=== PATIENT | male | born 1955 | race Caucasian/White ===

== ENCOUNTER 2025-04-20 16:41 | Inpatient (IN) | payer MEDICARE, OTHER, SELFPAY ==
[2025-04-20] VITALS (10 sets, daily range): BP systolic 100–165; BP diastolic 62–102; PULSE 2–121; BMI 19.9
[2025-04-20 13:12] LABS: % Basophils 0.4 % (0-2); % Eosinophils 0.1 % (0-6); % Immature Granulocytes 0.3 % (0-0.5); % Lymphocytes 6.9 % (20.5-51.1); % Monocytes 10.3 % (1.7-9.3); Absolute Basophils 0.1 10^3/uL (0-0.2); Absolute Lymphocytes 0.9 10^3/uL (1.2-3.4); Absolute Monocytes 1.4 10^3/uL (0.1-0.6); Hematocrit 37.8 % (39.0-52.0); Hemoglobin 13.1 g/dL (13.0-18.0); Mean Corp Hgb Conc. 34.7 g/dL (33.0-37.0); Mean Corpuscular Hgb 31.2 pg (27.0-31.0); Mean Platelet Volume 9.1 fL (7.4-10.4); Nucleated Red Blood Cells % 0 % (-); Platelet Count 185 10^3/uL (130-400); Red Cell Dist. Width 12.1 % (11.5-14.5); White Blood Cell Count 13.4 10^3/uL (4.8-10.8)
--- NOTE | 2025-04-20 13:15 | ED.GENMED ---
History of Present Illness
<Nena Barone DO - Last Filed: 04/20/25 15:49>
General
Chief Complaint: Breathing Problem
Time Seen by Provider: 04/20/25 12:57
<TORRES Moffett - Last Filed: 04/20/25 15:59>
General
Source: patient and spouse
Exam Limitations: none
Nursing documentation reviewed up to this point in time: agreed with
History of Present Illness
History of Present Illness:
Patient is a 69-year-old male with history of lung cancer/chemoradiation. He received first dose of immunotherapy March 30. He is followed by [facility] Dr. [place]. PT Presents to the ER for evaluation of shortness of breath. He has
had intermittent chills and shortness of breath since Thursday for the past 4 days. He was guided by oncology several years ago and negative chest x-ray.
Patient presents for shortness of breath. He is normally on O2 2 L. He has had recent cough.
Patient was placed on BiPAP prior to my exam and does report he is feeling improved.
Past History
<TORRES Moffett - Last Filed: 04/20/25 15:59>
Past History
ED Past Medical History: Other (pt states they are watching his blood pressure)
ED Past Surgical History: None
Social History
Tobacco: Smoker
Alcohol: Occasional
Drug: None
Personal:
Living: with family
Employment: Employed
Review of Systems
<TORRES Moffett - Last Filed: 04/20/25 15:59>
Review of Systems
Allergies reviewed?: Yes
Other source history: family
All Other Systems: ROS reviewed and negative except as documented in HPI and ROS
Constitutional: Reports chills
EENT: Reports no symptoms
Respiratory: Reports cough and trouble breathing
Cardiac: Reports no symptoms
ABD/GI: Reports no symptoms
: Reports no symptoms
Musculoskeletal: Reports no symptoms
Skin: Reports no symptoms
Psychiatric: Reports no symptoms
Phy Exam
<TORRES Moffett - Last Filed: 04/20/25 15:59>
General Physical Exam
General Presentation: no apparent distress
General age: appears stated age
General Skin: warm and dry
General Habitus: normal
General Mental: alert
General Hydration: appears well hydrated
Cardiovascular Exam
Cardiovascular Exam: tachycardia
Pulmonary Exam
Pulmonary Exam: other (Patient on BiPAP during my exam increased respiratory rate; rhonchi )
Neurological Exam
Neurological Exam: alert and oriented x3
Musculoskeletal Exam
Musculoskeletal Exam: full ROM
Skin Exam
Skin Exam: normal color
Psychiatric Exam
Psychiatric Exam: normal mood/affect
Scores
<TORRES Mofeftt - Last Filed: 04/20/25 15:59>
Heart Failure Risk
Heart Failure Risk Score: Not Applicable
Sepsis
<Nena Barone DO - Last Filed: 04/20/25 15:49>
Sepsis Screening
Sepsis Assessment: Sepsis
Sepsis Screening: Need for mechanical ventilation or BiPAP
Sepsis Screen
Sepsis Screen: Sepsis
Date: 04/20/25
Time: 15:49
<TORRES Moffett - Last Filed: 04/20/25 15:59>
Sepsis Screen
Sepsis Screen: Sepsis
Date: 04/20/25
Time: 15:50
Course
<Nena Barone DO - Last Filed: 04/20/25 15:49>
Orders/Labs/Results
Orders:
Orders
04/20/25 12:56
Electrocardiogram (*1) Urgent
Reason for Study: Shortness of Breath
EKG- Treatment ONCE
04/20/25 12:58
Complete Blood Count/With Diff Urgent
Comprehensive Metabolic Panel Urgent
Pro-BNP [NT-proBNP] Urgent
04/20/25 13:25
Portable Chest Xray [CR Chest Portable - 1 View] Urgent
Comment:
Reason For Exam: sob
Reason Study Needs to be Portable: Unable to Transport
04/20/25 13:26
CT Chest PE Study Urgent
Comment:
Reason For Exam: SOB
04/20/25 13:28
Acetaminophen [Tylenol] 650 mg PO NOW STA
04/20/25 13:29
0.9% Sodium Chloride 1000 ml [Nss] 1,000 ml IV BOLUS
04/20/25 13:46
COVID-19 Antigen Urgent
Source: Nasal Swab
Lactic Acid Q4H
Comment: CANCEL 2nd LACTIC ACID IF 1st LACTIC ACID IS LESS THAN 2
Venous Blood Gas Urgent
%Oxygen/Room Air: 100
Blood Culture Q30M
RAJ Source: Blood/Venous
Specimen Description:
Blood Culture Q30M
RAJ Source: Blood/Venous
Specimen Description:
Influenza A+B Rapid Molecular Urgent
RAJ Source: Nasal Swab
Specimen Description:
04/20/25 15:49
*Vancomycin 1,500 mg Loading Dose(consider for 50-69 kg; MAX HD load) Vancomycin [Vancocin] 1,500 mg 0.9% Sodium Chloride 500 ml [Nss] 500 ml IV NOW
Cefepime HCl [Maxipime] 1,000 mg IV NOW STA
Abnormal Lab Results
04/20/25 04/20/25
12:58 13:46
WBC 13.4 H 10^3/uL
(4.8-10.8)
RBC 4.20 L 10^6/uL
(4.70-6.10)
Hct 37.8 L %
(39.0-52.0)
MCH 31.2 H pg
(27.0-31.0)
Absolute Neuts (auto) 11.0 H 10^3/uL
(1.4-6.5)
Absolute Lymphs (auto) 0.9 L 10^3/uL
(1.2-3.4)
Absolute Monos (auto) 1.4 H 10^3/uL
(0.1-0.6)
Neutrophils % 82.0 H %
(42.2-75.2)
Lymphocytes % 6.9 L %
(20.5-51.1)
Monocytes % 10.3 H %
(1.7-9.3)
VBG HCO3 28.5 H mmol/L
(22-27)
Creatinine 0.6 L mg/dL
(0.7-1.3)
Glucose 140 H mg/dl
(70-99)
04/20/25 12:58
04/20/25 12:58
Vital Signs
Initial and Last Documented VS:
Initial Vital Signs
Pulse Resp BP
129 30 144/79
04/20/25 12:58 04/20/25 12:58 04/20/25 12:58
Last Documented Vital Signs
Temp Pulse Resp BP Pulse Ox
98.7 F 108 31 100/80 97
04/20/25 15:00 04/20/25 15:00 04/20/25 15:00 04/20/25 14:00 04/20/25 15:00
Tiffanilt;TORRES Moffett - Last Filed: 04/20/25 15:59>
Orders/Labs/Results
Orders:
Orders
04/20/25 12:56
Electrocardiogram (*1) Urgent
Reason for Study: Shortness of Breath
EKG- Treatment ONCE
04/20/25 12:58
Complete Blood Count/With Diff Urgent
Comprehensive Metabolic Panel Urgent
Pro-BNP [NT-proBNP] Urgent
04/20/25 13:25
Portable Chest Xray [CR Chest Portable - 1 View] Urgent
Comment:
Reason For Exam: sob
Reason Study Needs to be Portable: Unable to Transport
04/20/25 13:26
CT Chest PE Study Urgent
Comment:
Reason For Exam: SOB
04/20/25 13:28
Acetaminophen [Tylenol] 650 mg PO NOW STA
04/20/25 13:29
0.9% Sodium Chloride 1000 ml [Nss] 1,000 ml IV BOLUS
04/20/25 13:46
COVID-19 Antigen Urgent
Source: Nasal Swab
Lactic Acid Q4H
Comment: CANCEL 2nd LACTIC ACID IF 1st LACTIC ACID IS LESS THAN 2
Venous Blood Gas Urgent
%Oxygen/Room Air: 100
Blood Culture Q30M
RAJ Source: Blood/Venous
Specimen Description:
Blood Culture Q30M
RAJ Source: Blood/Venous
Specimen Description:
Influenza A+B Rapid Molecular Urgent
RAJ Source: Nasal Swab
Specimen Description:
04/20/25 15:49
*Vancomycin 1,500 mg Loading Dose(consider for 50-69 kg; MAX HD load) Vancomycin [Vancocin] 1,500 mg 0.9% Sodium Chloride 500 ml [Nss] 500 ml IV NOW
Cefepime HCl [Maxipime] 1,000 mg IV NOW STA
Abnormal Lab Results
04/20/25 04/20/25
12:58 13:46
WBC 13.4 H 10^3/uL
(4.8-10.8)
RBC 4.20 L 10^6/uL
(4.70-6.10)
Hct 37.8 L %
(39.0-52.0)
MCH 31.2 H pg
(27.0-31.0)
Absolute Neuts (auto) 11.0 H 10^3/uL
(1.4-6.5)
Absolute Lymphs (auto) 0.9 L 10^3/uL
(1.2-3.4)
Absolute Monos (auto) 1.4 H 10^3/uL
(0.1-0.6)
Neutrophils % 82.0 H %
(42.2-75.2)
Lymphocytes % 6.9 L %
(20.5-51.1)
Monocytes % 10.3 H %
(1.7-9.3)
VBG HCO3 28.5 H mmol/L
(22-27)
Creatinine 0.6 L mg/dL
(0.7-1.3)
Glucose 140 H mg/dl
(70-99)
04/20/25 12:58
04/20/25 12:58
Vital Signs
Initial and Last Documented VS:
Initial Vital Signs
Pulse Resp BP
129 30 144/79
04/20/25 12:58 04/20/25 12:58 04/20/25 12:58
Last Documented Vital Signs
Temp Pulse Resp BP Pulse Ox
98.7 F 108 31 100/80 97
04/20/25 15:00 04/20/25 15:00 04/20/25 15:00 04/20/25 14:00 04/20/25 15:00
Powderman consulted with Physician
Powderman consulted with physician?: Yes
Name of Physician Consulted: petty
<TORRES Moffett - Last Filed: 04/20/25 15:59>
MDM/Problems Addressed
Differential Diagnosis Includes:
not limited to: Pneumonia, PE
MDM/Problems Addressed:
Patient is a 69-year-old male with history of lung cancer status post chemoradiation had 1 dose of immunotherapy presents for shortness of breath chills for the past several days. Patient presented hypoxic was on BiPAP during my exam. No acute
pneumonia on chest x-ray however CAT scan does show patchy right lower lobe consolidation suspicious for pneumonia negative for PE. Patient presented with a low-grade temp of 100.3 given Tylenol with an elevated white count 13.4, normal lactic,
normal renal function will require admission IV antibiotics.
<TORRES Moffett - Last Filed: 04/20/25 15:59>
*Radiology
Radiology exam reviewed: radiology read reviewed
*Pulse Oximetry
Patient hypoxic: yes
*EKG
Interpreted by ED Provider?: Yes
Heart Rate: 129
Rate: tachycardiac
Rhythm: sinus
*Critical Care Note
Total Time (30-74mins, 75-104mins- exclusive of procedures): Not Applicable
comment:
Critical care statement: A total of 44 minutes of critical care time was provided for this patient. This includes management of unstable vital signs, evaluation of the patient at bedside, reviewing the patient's pertinent medical records, discussion
with consultants, review of old EKGs and review of pertinent medical records. This time with separate from time utilized to perform the aforementioned documented procedures
ED Attending Note
<Nena Barone DO - Last Filed: 04/20/25 15:49>
ED Attending Note
Patient seen and examined by attending physician: Yes
I performed the substantive portion of visit, reviewed & personally made and approve the management plan that is documented in note by myself or ABDI.: Yes
I performed a history and physical exam of patient and discussed management with resident, I reviewed resident's note and agree with documented findings and plan of care.: Yes
ED Attending Note:
69-year-old male with history of lung cancer, currently off of chemotherapy and radiation, on immunotherapy presenting for cough, shortness of breath, low-grade temperature. Patient has been feeling unwell for the past 5 days, had an oncology
appointment on Thursday at [facility]. He notes that he has been having a cough, however was not until today that he started to spike a fever, low-grade at home. noted that he looked increasingly short of breath, prompting him to
come to the hospital. Denies history of blood clots, is not on any blood thinners. No known sick contacts. Vital signs significant for low-grade temperature and tachycardia.
On exam, patient in moderate respiratory distress, respiratory called to bedside and placed on BiPAP. Rhonchorous breath sounds bilaterally. Patient is tachycardic, however sinus rhythm. Patient's vital signs are meeting SIRS criteria with
suspected source of infection being pulmonary. Concern for sepsis. Will send lactic acid, blood cultures, laboratory analysis. Patient started on IV fluids, plan for chest x-ray imaging. In the setting of low-grade fever and cough, lower
suspicion for PE. Will continue to monitor from a respiratory standpoint
15:45- Chest x-ray does not show obvious pneumonia, so CT PE obtained, which shows show acute pneumonia. Consistent with symptoms. Plan for broad-spectrum antibiotics and admission in the setting of sepsis from pulmonary source.
<TORRES Moffett - Last Filed: 04/20/25 15:59>
-
Portions of this chart may have been created with voice recognition software.� Occasional wrong word or��sound alike� substitutions may have occurred due to the inherent limitations of voice recognition software.
Discharge Plan
Departure
Patient Disposition: Admit
Date of Disposition: 04/20/25
Time of Disposition: 15:57
Admit to: Telemetry
Admit to doctor: hospitalist
Presentation/result/management discussed w/ accepting MD/DO: Hospitalist
Patient with high blood pressure during this ER visit?: Yes
Condition: Fair
Covid-19: Negative COVID-19
Discharge Problem:
Pneumonia
Prescriptions:
No Action
gabapentin 100 mg Capsule
100 mg PO BID
Referrals:
Naldo Alfonso MD [Family Provider] -
Interventions
Interventions:
*Risk Screen - Suicide Last Done: 04/20/25 12:59
*General Assessment Last Done: 04/20/25 12:59
*Neglect/Abuse Screening Last Done: 04/20/25 12:59
*ED- Fall Risk Assessment Last Done: 04/20/25 12:59
*ED COVID-19 Vaccine History Last Done: 04/20/25 12:59
ED- Cardiac Assessment Last Done: 04/20/25 12:59
ED- Pulmonary Assessment Last Done: 04/20/25 12:59
Discharge Date and Time
Print Language: YAKUT
[2025-04-20 13:30] LABS: ALT (SGPT) 32 U/L (0-50); AST (SGOT) 26 U/L (17-59); Alkaline Phosphatase 74 U/L (38-126); Blood Urea Nitrogen 19 mg/dl (9-20); Calcium 8.6 mg/dl (8.4-10.2); Carbon Dioxide 27 mmol/L (22-30); Chloride 105 mmol/L (98-107); Estimated Creatinine Clearance 108 ml/min; Glucose 140 mg/dl (70-99); Sodium 139 mmol/L (135-145); Total Bilirubin 0.9 mg/dl (0.2-1.3); Total Protein 6.8 g/dl (6.3-8.2); eGFR > 60.00
[2025-04-20] MEDS: NSS 1000 IV (13:35)
[2025-04-20] MEDS: TYLENOL 650 MG PO (13:35)
[2025-04-20 13:39] LABS: NT-proBNP 879 pg/ml
[2025-04-20 14:03] LABS: Venous Blood Gas B.E. 2.8 mmol/L (-4 to +4); Venous Blood Gas HCO3 28.5 mmol/L (22-27); Venous Blood Gas O2 Sat % 71.4 %; Venous Blood Gas pCO2 47 mmHg (35-48); Venous Blood Gas pH 7.39 (7.32-7.43); Venous Blood Gas pO2 41 mmHg (30-50)
[2025-04-20 14:19] LABS: COVID-19 Antigen Negative (Negative)
[2025-04-20 14:22] LABS: Lactic Acid 1.2 mmol/L (0.7-2.0)
[2025-04-20] MEDS: MAXIPIME 1000 MG IV ×2 (15:59→21:03)
--- NOTE | 2025-04-20 16:21 | HPS.HSE ---
Addendum entered and electronically signed by Hai Green MD 04/20/25 17:08:
ADDENDUM:
Septic Fluid ; IV LR @ 100/H
Original Note:
Family Physician
-
Family Physician: Naldo Alfonso
Chief Complaint
-
shortness of breath.
History of Present Illness
HPI
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
- for evaluation of shortness of breath.
- First dose of immunotherapy as of March 30
- he is followed by [facility] Dr. [place].
- aslo has had intermittent chills and shortness of breath since Thursday for the past 4 days.
ER w/u
WBC 13.4
CT neg for PE + right lower lobe consolidation /pneumonia . I
Patient presents for shortness of breath. He is normally on O2 2 L. He has had recent cough.
Patient was placed on BiPAP prior to my exam and does report he is feeling improved.
At ER
NS 1 L wide open
BiPAP
Medical History
Past Medical History
Past Medical History: Reports Cancer (HX home O2 depedent CA lung cancer on chemoradiation) and HTN
Past Surgical History: Reports Other
Social History
Tobacco: Smoker
Alcohol: Occasional
Personal:
Living: With Family
Family History
Family History: Not pertinent
Allergies / Home Medications
Allergies reflects when Allergies were last updated in [employer].
Home Medications with original date entered in [employer]
Allergy/Medication List:
Allergies
Allergy/AdvReac Type Severity Reaction Status Date / Time
clopidogrel [From Plavix] Allergy Rash Verified 04/20/25 12:55
Home Medications
albuterol sulfate 90 mcg/actuation aerosol inhaler 2 puff inhalation R Q6HPRN PRN sob 04/20/25
aspirin 81 mg tablet,delayed release 81 mg PO DAILY 04/20/25
atorvastatin 40 mg tablet (Lipitor) 40 mg PO DAILY 04/20/25
fluticasone fur. 200 mcg-umeclid 62.5 mcg-vilant 25 mcg inhalat.powder (Trelegy Ellipta) 1 inh inhalation R DAILY 04/20/25
gabapentin 100 mg capsule 200 mg PO HS 04/20/25
nifedipine 90 mg tablet,extended release 90 mg PO DAILY 04/20/25
Review of Systems
-
Constitutional: Reports No Symptoms
EENT: Reports No Symptoms
Cardiac: Reports No Symptoms
Abdomen/GI: Reports No Symptoms
: Reports No Symptoms
Musculoskeletal: Reports No Symptoms
Skin: Reports No Symptoms
Neurological: Reports No Symptoms
Endocrine: Reports No Symptoms
Hematologic/Lymphatic: Reports No Symptoms
Psych: Reports No Symptoms
Physical Exam
Vital Signs
Vital Signs
Temp Pulse Resp BP Pulse Ox
98.7 F 108 31 100/80 97
04/20/25 15:00 04/20/25 15:00 04/20/25 15:00 04/20/25 14:00 04/20/25 15:00
Physical Exam
General: Well Developed, Well Nourished, No Apparent Distress and Other (wearing BiPAP and tolerating )
HEENT: NormoCephalic, Moist mucous membranes and Atraumatic
Respiratory: Other (Tachypneic, rhonchi )
Cardiac: S1/S2, Regular Rhythm and Tachycardia; No Murmur or Rub
GI: Soft, Non Tender, Non Distended and Normal Bowel Sounds; No Organomegaly
Rectal: Deferred by Provider
Musculoskeletal: No Clubbing, No Cyanosis and No Edema
Skin: No Rash
Neuro: Nonfocal/grossly intact
Psych: Calm and Intact Judgment/Insight
Laboratory Results
-
04/20/25 12:58
04/20/25 12:58
Labs
Lactic Acid Cancelled 04/20/25 17:45
Total Bilirubin 0.9 mg/dl (0.2-1.3) 04/20/25 12:58
AST 26 U/L (17-59) 04/20/25 12:58
ALT 32 U/L (0-50) 04/20/25 12:58
Alkaline Phosphatase 74 U/L (38-126) 04/20/25 12:58
Data Reviewed
-
CT Scan: Report Reviewed by me
Medical Tests (Nuc Med, Echo, EKG etc): Image Personally Visualized and interpreted
Lab Data: Labs Reviewed by me
Impression/Plan
-
Vital Signs
Temp Pulse Resp BP Pulse Ox
98.7 F 108 31 100/80 97
04/20/25 15:00 04/20/25 15:00 04/20/25 15:00 04/20/25 14:00 04/20/25 15:00
Selected VS
04/20/25
12:59
Temp 100.3 F
Temp route: Oral
Pulse 123
Resp Rate 37
SaO2 100
Oxygen Mode of Delivery BiPAP
Labs
04/20/25 04/20/25
12:58 13:46
WBC 13.4 H
Hgb 13.1
Plt Count 185
Neutrophils % 82.0 H
Lymphocytes % 6.9 L
Monocytes % 10.3 H
VBG pH 7.39
VBG pCO2 47
VBG pO2 41
VBG HCO3 28.5 H
Sodium 139
Potassium 4.0
Carbon Dioxide 27
Creatinine 0.6 L
eGFR > 60.00
Lactic Acid 1.2
AST 26
ALT 32
Alkaline Phosphatase 74
Qiq-Y-Rgnryfgfsmg Pept 879
SARS-CoV-2 Antigen Negative
NEG Flu A and Flu B
BCx sent
EKG
SINUS TACHYCARDIA WITH OCCASIONAL PREMATURE ATRIAL COMPLEXES AND PREMATURE
VENTRICULAR COMPLEXES
NO PREVIOUS ECGS AVAILABLE
Confirmed by QUIN PRYOR MD ([id number]) on 04/20/2025 1:12:12 PM
CXR
Suspect chronic interstitial changes/fibrosis. Superimposed pneumonitis or pulmonary interstitial edema not excluded.
Contrast-enhanced CTA of the chest 04/20/2025
1. No evidence of pulmonary embolism.
2. Patchy right lower lobe subpleural consolidation highly suspicious for pneumonia.
3. Bilateral pulmonary nodules measuring up to 1.1 cm, infectious/inflammatory versus neoplastic. Recommend short-term follow-up CT chest in 6-10 weeks versus further evaluation with PET/CT.
4. Prominent mediastinal and hilar lymphadenopathy, reactive versus metastatic.
NO PRIOR DH visist or hospitalist admission:
ASSESSMENT & PLAN
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
Acute hypoxic RF due to PNA
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
- NEG CTE for PE
- c/w BiPAP support
Sepsis due to PNA
PNA @ [facility]LLL
Associated with acute on chr hypoxic RF
- NEG Covid. TIARA Flu A & B
- BCx sent
- IV CFP and IV Vanco
- Wean BiPAP as able
Two primary Lung CA :Per spouse ( Stage I on Rt , Stgae IIIa on Lt)
Currently on Immunotherapy ) q2weks for 1 yr, first dose on April 04, missed dose on April 18 due to acute illnes)
S/P 6 cycles of chemo as of January , s/p XRT as of February.
Bilateral pulmonary nodules measuring up to 1.1 cm
Prominent mediastinal and hilar lymphadenopathy, reactive versus metastatic.
DDX: infectious/inflammatory versus neoplastic.
- short-term follow-up CT chest in 6-10 weeks versus further evaluation with PET/CT.
- Postponed immuno Tx for now due to PNA
- f/u P Oncologist Dr [place] at [facility] on [facility].
Essential HTN
- c/w SASH MAKER Nifedipine
DVT Px:LMWH
Full code per patient
IMU
[2025-04-20] MEDS: VANCOCIN 530 MG IV (16:22)
[2025-04-20] MEDS: LR 1000 IV (17:42)
[2025-04-20] MEDS: LOVENOX 40 MG SC (17:43)
--- NOTE | 2025-04-20 19:32 | PHA.VAN.IN ---
Assessment
- Assessment
Renal Function: Unknown baseline
Maximum Temperature: 100.5 F oral 04/20 @ 1805
Concomitant Antimicrobials: cefepime
AUC Dosing Plan
- Dosing Variables
Dosing Weight (kg): 66.5
Dosing CrCl (ml/min): 108
Vd coefficient (L/kg): 0.7
- Empiric Dosing
Initial / Loading Dose: vanc 1500mg administered @ 1622
Maintenance Regimen: vanc 1000mg Q12H
Estimated AUC (mcg*h/mL): 478
Estimated Peak (mcg*h/mL): 31.8
Estimated Trough (mcg/ml): 11.3
Estimated Half Life (H): 7.4
- Monitoring
No levels ordered at this time: consider levels in next few days
MRSA Screen: Ordered per protocol
Pharmacokinetics Vancomycin I
- -
Patient Age: 69
Patient Sex: Male
Vancomycin Day #: 1
Indication: Pulmonary/Respiratory
Requesting Provider: Esperanza Eckert
Pertinent Antimicrobial Allergies:
no pertinent antimicrobial allergies
Height / Weight:
Height 6 ft
Actual Weight 66.5 kg
Pertinent Past Medical History: lung cancer receiving chemotherapy/radiation
- Vital Signs / Lab Results
Temp Pulse Resp BP Pulse Ox
100.5 F H 129 29 152/62 92
04/20/25 18:05 04/20/25 18:15 04/20/25 18:15 04/20/25 18:00 04/20/25 18:15
Lab Results - Hematology
04/20/25
12:58
WBC 13.4 H
Lab Results - Chemistry
04/20/25
12:58
BUN 19
Creatinine 0.6 L
Estimated Creat Clear 108
Albumin 4.0
04/20/25 04/20/25
13:46 17:45
Lactic Acid 1.2 Cancelled
Microbiology Results
04/20/25 13:46 Influenza Types A & B (PURVI) - Final
Nasal Swab Negative for Influenza A & B, NAAT
Negative results must be combined with clinical observations
and patient history.
Nucleic Acid Amplification test (NAAT)performed on the
[employer] platform.
--- NOTE | 2025-04-20 20:33 | PTCARENOTE ---
Addendum entered by Veronica Núñez 04/20/25 22:41:
Pt with episode acute distress, SOB. Tried to get OOB to use urinal, had episode of incontinence, HR as high as 190s sitting at side of bed. Pt transitioned back to bed, EKG performed to confirm SR. BiPAP mask in place, RT contacted to reassess pt.
BUSINESS WRITER called to bedside. STAT medications given. STAT labs drawn.
Original Note:
Pt with tachycardia to 120s-140s. SR with occasional PACs, PVCs on CM. Tachypneic to 20s-30s. BP elevated 165/66. Pt c/o SOB, 92% on 5L O2. Pt states he normally takes nifedipine 90mg and states he has not had a dose tonight. Denies additional
symptoms at this time. TORRES Perez contacted via TT.
[2025-04-20] MEDS: SYMBICORT 160/4.5 MCG INHALER 2 PUFF INH (20:35)
[2025-04-20] MEDS: NEURONTIN 200 MG PO (21:03)
[2025-04-20] MEDS: STERILE WATER FOR INJECTION 10 ML IV (21:03)
[2025-04-20] MEDS: ProAIR HFA INHALER 2 PUFF INH (21:34)
--- NOTE | 2025-04-20 22:08 | W.PN.UPDATE ---
Update Note
Progress Note Update
RN stated, patient tachypneic 30's, Tachycardia 120's-140's 165/66 92% 5L, c/o SOB. RT at bedside. Lungs with mild rhonchi, tachypneic 26 HR 120's, temp 98, denies chest pain, reports SOB, but states feels better than before, placed on Bipap by RT.
45 minutes later, RN reports patient noted to be more tachypneic 30's, HR 160's-190's. Patient seen again, remains Oriented, sweaty, had an episode of incontinence, reports its the mask making him feel this way and that he was also trying to
urinate, reports SOB, denies chest pain, HR 120's-140s 98.0,30's 98% Bipap, 160's/100s,
EKG results noted,labs, Metoprolol 2.5 IVx1, morphine 0.5mg IV x1
corrected calcium 7.5, Calcium gluconate IVx1
Consult Survey Research Manager
[2025-04-20] MEDS: MORPHINE SULFATE 0.5 MG IV (22:13)
[2025-04-20] MEDS: LOPRESSOR 2.5 MG IV (22:14)
[2025-04-20 22:33] LABS: Hematocrit 32.2 % (39.0-52.0); Hemoglobin 11.5 g/dL (13.0-18.0); Mean Corp Hgb Conc. 35.7 g/dL (33.0-37.0); Mean Corpuscular Hgb 32.1 pg (27.0-31.0); Mean Corpuscular Volume 89.9 fL (80.0-94.0); Mean Platelet Volume 9.2 fL (7.4-10.4); Platelet Count 141 10^3/uL (130-400); Red Blood Cell Count 3.58 10^6/uL (4.70-6.10); Red Cell Dist. Width 12.2 % (11.5-14.5); White Blood Cell Count 10.5 10^3/uL (4.8-10.8)
[2025-04-20 22:49] LABS: Blood Urea Nitrogen 18 mg/dl (9-20); Calcium 7.9 mg/dl (8.4-10.2); Carbon Dioxide 24 mmol/L (22-30); Chloride 105 mmol/L (98-107); Estimated Creatinine Clearance 108 ml/min; Glucose 147 mg/dl (70-99); Magnesium 1.7 mg/dl (1.6-2.3); Potassium 3.6 mmol/L (3.5-5.1); Sodium 135 mmol/L (135-145); eGFR > 60.00
[2025-04-20 22:54] LABS: Troponin I 0.018 ng/ml
[2025-04-21] VITALS (15 sets, daily range): BP systolic 127–159; BP diastolic 62–93; PULSE 2–98; O2SAT 92; BMI 20.3
[2025-04-21] MEDS: CALCIUM GLUCONATE 100 IV (00:35)
[2025-04-21] MEDS: STERILE WATER FOR INJECTION 10 ML IV ×4 (04:37→21:04)
[2025-04-21] MEDS: MAXIPIME 1000 MG IV ×4 (04:37→21:04)
[2025-04-21] MEDS: VANCOCIN 200 IV (05:00)
[2025-04-21 05:08] LABS: Hemoglobin 10.8 g/dL (13.0-18.0); Mean Corp Hgb Conc. 34.8 g/dL (33.0-37.0); Mean Corpuscular Hgb 31.8 pg (27.0-31.0); Mean Corpuscular Volume 91.2 fL (80.0-94.0); Mean Platelet Volume 9.3 fL (7.4-10.4); Platelet Count 149 10^3/uL (130-400); Red Cell Dist. Width 12.2 % (11.5-14.5); White Blood Cell Count 9.2 10^3/uL (4.8-10.8)
[2025-04-21 06:22] LABS: Hepatitis C Antibody Negative (Negative)
--- NOTE | 2025-04-21 07:49 | CON.CAR ---
Addendum entered and electronically signed by Marco Morgan MD 04/21/25 10:45:
I saw and examined the patient.
The UNIONMELT OPERATOR's note was reviewed and I agree with the note.
69-year-old male with history of lung cancer status post chemotherapy and radiation therapy and started immunotherapy earlier this month. Patient also with history of PAD hypertension hypercholesterolemia his primary media buyer is Dr. Holbrook at
[facility]. Patient presented with shortness of breath and fever is admitted to the hospitalist service with suspected pneumonia. Patient was noted to have narrow complex tachycardia prompting consult. Apparently heart rates became higher when he
was agitated and had BiPAP mask on. He said it felt like he could not breathe with it on and he was panicking a bit and not surprised that his heart rate went up. ECG suggestive of multifocal atrial tachycardia. Patient currently with sinus
rhythm with PACs. Patient denies history of A-fib. Patient received dose of metoprolol IV. currently comfortable in no distress faint wheeze at right base.
He is on nifedipine as an outpatient. Based on the above I would recommend changing nifedipine to Cardizem. ECG suggestive of MAT but will also need to monitor for A-fib.
- Continue to monitor on telemetry
- Cardizem
- Echo
- Treatment of pneumonia as directed by primary team
Original Note:
Consultation
Consultation Request
Date/Time Consultation Requested: 04/21/25 12:15a
Date/Time Consultation Performed: 04/21/25 7:45a
Requesting Provider: TORRES Saha
Performing Provider: TORRES Liu for Dr. Morgan
Reason for Consultation: tachycardia
Medical History
-
Chief Complaint: sob
History of Present Illness:
Mr. Turner is a 69 yo male with lung cancer (chemo/radiation completed 02/2025, 1st dose of immunotherapy 03/30/25, followed by Dr. Orlando at [facility]), HLD, and HTN, and PAD (RLE 'balloon' 2 years ago by vascular surgery at [facility]), who
presents to the ER with c/o sob with chills intermittently for the last 4 days. He was hypoxic on arrival, improved on bipap, chest CT concerning for RLL PNA and temp 100.3, leukocytosis, given IV antibiotics. He is admitted to hospitalist and we
are consulted for tachycardia. Last night developed worsened SOB and sinus tachycardia then MAT, given IV Lopressor 2.5mg with improvement. He denies feeling palpitations or other cardiac symptoms. He has a media buyer, Dr. Holbrook at [facility]
[place].
Past Medical History
Past Medical History: Other (as above)
Past Surgical History: None
Social History
Tobacco: Smoker (1ppd for 40 years, quit 6 months ago)
Alcohol: None
Personal:
Living: With Family
Employment: Employed
Family History
Family History: Reviewed & Not Pertinent
Allergies / Home Medications
Allergy/AdvReac Type Severity Reaction Status Date / Time
clopidogrel [From Plavix] Allergy Rash Verified 04/20/25 12:55
�Medication �Instructions �Recorded �Confirmed �Type
albuterol sulfate 90 mcg/actuation 2 puff inhalation R Q6HPRN PRN sob 04/20/25 04/20/25 History
aerosol inhaler
aspirin 81 mg tablet,delayed 81 mg PO DAILY 04/20/25 04/20/25 History
release
atorvastatin 40 mg tablet (Lipitor) 40 mg PO DAILY 04/20/25 04/20/25 History
fluticasone fur. 200 mcg-umeclid 1 inh inhalation R DAILY 04/20/25 04/20/25 History
62.5 mcg-vilant 25 mcg
inhalat.powder (Trelegy Ellipta)
gabapentin 100 mg capsule 200 mg PO HS 04/20/25 04/20/25 History
nifedipine 90 mg tablet,extended 90 mg PO DAILY 04/20/25 04/20/25 History
release
Review of Systems
-
History Source: Patient
All other systems: Negative unless noted
Physical Exam
Vital Signs
Temp Pulse Resp BP Pulse Ox
97.9 F 95 24 134/68 93
04/21/25 03:00 04/21/25 06:00 04/21/25 06:00 04/21/25 06:00 04/21/25 06:00
Lab Results
04/21/25 04:44
04/20/25 22:21
Troponin I 0.018 ng/ml 04/20/25 22:21
Izn-O-Mjzaeagfkrb Pept 879 pg/ml 04/20/25 12:58
Physical Exam
General: Well Developed and No Apparent Distress
HEENT: Normocephalic, Anicteric and Moist Mucous Membranes
Respiratory: Rhonchi (diffuse b/l ) and Non Labored Respirations
Cardiac: S1/S2 and Regular Rhythm
Breast: Deferred by me
GI: Soft, Non Tender, Non Distended and Normal Bowel Sounds
Rectal: Deferred by Provider
Genito-urinary: No Costovertebral Tender
Musculoskeletal: No Clubbing, No Cyanosis and No Edema
Skin: Warm and Dry
Neuro: AO x 3
Psych: Calm
Impression / Plan
-
Sinus tachycardia/MAT - in the setting of acute SOB with RLL PNA and lung cancer.
- improved after IV Lopressor.
- monitor on tele.
- will change Nifedipine to Cardizem CD 120mg daily and monitor.
HTN - chronic.
- on Nifedipine as outpatient.
- changing to Cardizem for ST/MAT.
- stable.
HLD - stable on Lipitor, continue.
PAD - prior angioplasty to RLE 2 years ago, vascular surgery at [facility].
- on ASA and Lipitor.
- was on Plavix but developed a rash so stopped.
Lung cancer - diagnosed in Sep 2024, 2 spots on left lung and 1 on right lung.
- s/p chemo for 6 weeks then XRT 30 rounds on left lung and 5 intense XRT rounds on right lung, finished 02/2025.
- started Immunotherapy 03/30/25, went to infusion last week but didn't receive treatment due to respiratory illness at the time.
- managed by Dr. Orlando at [facility].
Data Reviewed
-
EKG: Tracing Personally Visualized and interpreted (initial EKG 04/[address] with PAC/PVCs 129 bpm. EKG 04/20 9p MAT 141 bpm with inferior TWI)
Radiology: Report Reviewed by me (CXR: Suspect chronic interstitial changes/fibrosis. Superimposed pneumonitis or pulmonary interstitial edema not excluded.)
CT Scan: Report Reviewed by me (chest: No PE, patchy RLL subpleural consolidation suspicious for PNA. b/l pulmonary nodules infectious/inflammatory vs neoplastic. mediastinal and hilar lymphadenopathy reactive vs metastatic.)
[2025-04-21] MEDS: SPIRIVA RESPIMAT 2.5 MCG 2 PUFF INH (07:51)
[2025-04-21] MEDS: SYMBICORT 160/4.5 MCG INHALER 2 PUFF INH ×2 (07:51→20:12)
--- NOTE | 2025-04-21 08:40 | PHA.VAN.FU ---
Vancomycin Assessment / Plan
- Assessment
Renal Function: Stable
WBC's are: WNL
Concomitant Antimicrobials: cefepime
- Dosing Plan
Continue: Vanc 1000mg Q12H
- Monitoring Plan
No level(s) ordered at this time: consider levels in next few days
- Follow Up
Pharmacy will continue to follow.
Vancomycin Follow UP
- -
Patient Age: 69
Patient Sex: Male
Vancomycin Day #: 2
Indication: Pulmonary/Respiratory
Requesting Provider: Esperanza Eckert
Pertinent Antimicrobial Allergies:
no pertinent antimicrobial allergies
Height / Weight:
Height 6 ft
Actual Weight 67.857 kg
Pertinent Past Medical History: Metastatic lung cancer
- Vital Signs / Lab Results
Temp Pulse Resp BP Pulse Ox
97.9 F 101 20 134/68 94
04/21/25 03:00 04/21/25 07:55 04/21/25 07:55 04/21/25 06:00 04/21/25 07:55
Lab Results - Hematology
04/20/25 04/20/25 04/21/25
12:58 22:21 04:44
WBC 13.4 H 10.5 9.2
Lab Results - Chemistry
04/20/25 04/20/25
12:58 22:21
BUN 19 18
Creatinine 0.6 L 0.5 L
Estimated Creat Clear 108 108
Albumin 4.0
04/20/25 04/20/25
13:46 17:45
Lactic Acid 1.2 Cancelled
Microbiology Results
04/20/25 19:04 Legionella Urinary Antigen - Final
Urine Negative for Legionella pneumophila Serogroup 1 antigen.
A negative result does not rule out the possiblity of
Legionella infection due to other serogroups or species of
Legionella. Clinical correlation is recommended.
Streptococcus pneumoniae Antigen (M - Final
Negative for Streptococcus pneumoniae antigen.
A negative result does not exclude infection with
Streptococcus pneumoniae. Clinical correlation is
recommended.
04/20/25 13:46 Influenza Types A & B (PURVI) - Final
Nasal Swab Negative for Influenza A & B, NAAT
Negative results must be combined with clinical observations
and patient history.
Nucleic Acid Amplification test (NAAT)performed on the
[employer] platform.
[2025-04-21] MEDS: ASPIR LOW (ENTERIC COATED) 81 MG PO (09:50)
[2025-04-21] MEDS: LR 1000 IV ×2 (09:50→21:05)
[2025-04-21] MEDS: LIPITOR 40 MG PO (09:50)
[2025-04-21] MEDS: CARDIZEM CD 120 MG PO (09:53)
--- NOTE | 2025-04-21 10:40 | W.PN.HOSP.TC ---
Today's Communication/Plan
-
Assessment / Plan
Assessment / Plan
General: No Apparent Distress, Comfortable and Conversant
HEENT: NormoCephalic, Moist mucous membranes, nasal cannula in place
Respiratory: Crackles in the right lung field, no wheezing
Cardiac: S1/S2 and Regular Rhythm; No Rub or Gallop
GI: Soft, Non Tender, Non Distended and Normal Bowel Sounds
Musculoskeletal: No Edema, no deformity
Skin: Warm and dry
: NO Delgado
Neuro: Awake, Alert, Nonfocal/grossly intact
Psych: Calm and Intact Judgment/Insight
Mr. Turner is a 69-year-old male with a medical history of lung cancer (completed chemoradiation 03/24, started immunotherapy 03/30/2025, follows with Dr. Orlando at [facility]), PAD (status post right lower extremity balloon angioplasty
at [facility] 2 years ago, not on Plavix due to rash), and hypertension who presented with chills and shortness of breath. In the ED he was found to be hypoxic which improved with supplemental oxygen and BiPAP. His CT chest demonstrated right lower
lobe pneumonia. Labs were remarkable for leukocytosis of 13,000 and he was tachycardic with a heart rate around 120. He developed a low-grade fever of 100.5 �F. He was admitted for further evaluation and management of sepsis secondary to
pneumonia.
Sepsis secondary to pneumonia:
- Chest imaging suspicious for right lower lobe pneumonia, suspect there are some baseline parenchymal changes due to prior radiation to both lungs for treatment of cancer
- Lactic acid within normal limits
- Has remained normotensive
- Continue antibiotics currently with vancomycin and cefepime, follow-up cultures
- Supplemental oxygen and BiPAP as needed
- Continued scheduled breathing treatments with additional DuoNebs as needed
- Continue IV fluids currently with LR 80
Tachycardia:
- Likely reactive to acute infection
- Heart rate uncontrolled overnight but improved with pushes of IV Lopressor
- Cardiology following, monitoring on telemetry for A-fib
- Cardiology recommends changing home nifedipine to Cardizem to assist with rate control
- Will check echocardiogram
- Continue treatment of underlying pneumonia
Lung cancer:
- Follows with Dr. Orlando at [facility] in [facility]
- Started on immunotherapy at the beginning of March, missed second dose due to beginning of this current respiratory illness
- I called and left a message for Dr. Orlando with his office today 04/21 to let him know of patient's current hospitalization, left callback information, received callback and discussed current care plan, no new recommendations, oncology team
appreciates our current care and would let us know if they have anything further to add
Hypertension:
- Switched home nifedipine to diltiazem for better rate control considering tachycardia
- Currently normotensive
PAD:
- Continue aspirin and statin
- Not on Plavix due to allergic reaction
DVT prophylaxis: Lovenox
CODE STATUS: Full code
Total time spent on today's encounter was 40 minutes
Anticipated Discharge: > 48 hours
Subjective/Interval History
-
Date of Service: April 21, 2025
Patient was seen and examined at bedside this morning. Feeling more comfortable this morning that he did overnight when he was extremely short of breath. Still mildly short of breath and requiring supplemental oxygen via nasal cannula.
Objective Data
-
Labs:
Laboratory Results
04/20/25 04/21/25
22:21 04:44
WBC 9.2
Hgb 10.8 L
Hct 31.0 L
Plt Count 149
Sodium 135
Potassium 3.6
Chloride 105
Carbon Dioxide 24
BUN 18
Creatinine 0.5 L
Glucose 147 H
Calcium 7.9 L
Vital Signs:
Vital Signs
Temp Pulse Resp BP Pulse Ox
97.5 F 103 15 147/81 90
04/21/25 07:17 04/21/25 10:00 04/21/25 10:00 04/21/25 10:00 04/21/25 10:00
I&O
04/20/25 04/21/25 04/22/25
06:59 06:59 06:59
Intake Total 480 / 480
Balance 480 / 480
Review of Systems
-
History Source: Patient
All other systems: Reviewed and negative
Respiratory: Reports Trouble Breathing
Physical Exam
-
General: No Apparent Distress
--- NOTE | 2025-04-21 15:15 | VNURNOTE ---
Home Health Liaison met with patient and spouse at bedside to discuss [facility] nurse/therapy, visits, schedule and homebound status. Both are agreeable and understand that visits at home will be 2-3 x per week to assess and teach medical management.
Patient and spouse are aware that [facility] will contact them for start of care in 1-2 days after discharge from . The patient reported QUALITY CONTROL LAB TECH at home, he was using 2L 02 'mostly at night.' He reported that he has portable tanks and a stationary
concentrator at home. DME co. is [employer].
Home 02 concentrator goes up to 5L.
Watch for increased 02 needs closer to [place].
[facility] referral completed in [facility] Port.
[2025-04-21] MEDS: DUONEB 3 ML INH ×2 (15:44→20:12)
[2025-04-21] MEDS: TYLENOL 650 MG PO ×2 (16:44)
[2025-04-21] MEDS: FLUSH (NSS) 1 FLUSH IV (16:44)
--- NOTE | 2025-04-21 16:59 | CM ---
Patient with Dx Sepsis secondary to pneumonia. O2 4L. BiPAP. Receiving IVF, IV Abx. PT recommends HH.
Met with patient and . The patient resides with his in a 2 story house with 1 JULIOCESAR.
The patient was independent in ADLs and ambulation.
The patient's only DME is home O2 2L - concentrator/portables through [employer].
No prior VN or SNF.
PCP - Naldo Alfonso
Pharmacy - [facility]
Offered VN for SN & PT and patient chose [facility]---> referral to Beryl [facility] Liaison.
Plan home with [facility].
--- NOTE | 2025-04-21 17:01 | PTCARENOTE ---
Patient has been on 4L n/c all day. Spo2 92%-93%. He does report SOB on exertion. Lungs are coarse and diminished. He has an occasional moist cough which is not productive. Patient worked with PT today and is currently OOB in chair with an
assistance x1. IV fluids infusing via right SQ port LR @ 80mls/hr. Using urinal independently. SR/ST with PVC'S + PAC'S.
[2025-04-21] MEDS: LOVENOX 40 MG SC (18:26)
[2025-04-21] MEDS: REFRESH EYE DROPS (PF) 1 DROPS OPHTH (18:27)
[2025-04-21] MEDS: NEURONTIN 200 MG PO (21:04)
[2025-04-21] MEDS: SENOKOT-S 1 TABLET PO (21:04)
[2025-04-22] VITALS (15 sets, daily range): BP systolic 117–159; BP diastolic 65–120; O2SAT 94
--- NOTE | 2025-04-22 00:38 | PTCARENOTE ---
Pt able to ambulate from chair to bed with assist x1. Denies SOB, SpO2 93% on 4L. Reports feeling 'better' than yesterday. IVF maintained through R SQ port. Call avila within reach. Pt demonstrates appropriate use.
[2025-04-22] MEDS: MAXIPIME 1000 MG IV ×4 (04:09→22:18)
[2025-04-22] MEDS: STERILE WATER FOR INJECTION 10 ML IV ×4 (04:09→22:18)
[2025-04-22 04:21] LABS: Mean Corp Hgb Conc. 34.5 g/dL (33.0-37.0); Mean Corpuscular Hgb 31.2 pg (27.0-31.0); Mean Corpuscular Volume 90.3 fL (80.0-94.0); Mean Platelet Volume 9.3 fL (7.4-10.4); Platelet Count 156 10^3/uL (130-400); Red Blood Cell Count 3.21 10^6/uL (4.70-6.10); Red Cell Dist. Width 12.2 % (11.5-14.5); White Blood Cell Count 7.7 10^3/uL (4.8-10.8)
[2025-04-22] MEDS: SYMBICORT 160/4.5 MCG INHALER 2 PUFF INH ×2 (07:54→20:36)
[2025-04-22] MEDS: SPIRIVA RESPIMAT 2.5 MCG 2 PUFF INH (07:54)
[2025-04-22] MEDS: DUONEB INH (07:54)
[2025-04-22] MEDS: LIPITOR 40 MG PO (09:04)
[2025-04-22] MEDS: ASPIR LOW (ENTERIC COATED) 81 MG PO (09:04)
[2025-04-22] MEDS: SENOKOT-S 1 TABLET PO ×2 (09:04→20:07)
[2025-04-22] MEDS: CARDIZEM CD 120 MG PO (09:04)
--- NOTE | 2025-04-22 10:30 | W.PN.CD ---
Addendum entered and electronically signed by Marco Morgan MD 04/22/25 11:19:
I saw and examined the patient.
The MULTIMEDIA PRODUCTION ASSISTANT's note was reviewed and I agree with the note.
Overall patient is feeling better today remains on 6 L. He is normally on 2 L as an outpatient. Patient noted to have multifocal atrial tachycardia earlier this admission without clear evidence of atrial fibrillation. Overall stable on telemetry
overnight. Tolerating Cardizem. Patient will remain on Cardizem and off nifedipine.
-Will update echocardiogram on Thursday. Otherwise no new recommendation
. Please call if additional assistance required
Original Note:
Today's Communication / Plan
-
continue diltiazem and monitoring of telemetry
echo ordered
Impression / Plan
-
Multifocal atrial tachycardia - in the setting of acute SOB with RLL PNA and lung cancer.
- Nifedipine transitioned to Cardizem CD 120mg daily- continue
-obtain echo
HTN - chronic.
-continue CCB as above and monitor
HLD - continue lipitor
PAD - prior angioplasty to RLE 2 years ago, vascular surgery at [facility].
- on ASA and Lipitor.
Lung cancer - diagnosed in Sep 2024, 2 spots on left lung and 1 on right lung.
- s/p chemo for 6 weeks then XRT 30 rounds on left lung and 5 intense XRT rounds on right lung, finished 02/2025.
- started Immunotherapy 03/30/25, went to infusion last week but didn't receive treatment due to respiratory illness at the time.
- managed by Dr. Orlando at [facility].
Physical Exam
Vital Signs/Labs
Vital Signs
Temp Pulse Resp BP Pulse Ox
99.4 F 95 29 137/85 90
04/22/25 07:00 04/22/25 09:05 04/22/25 09:05 04/22/25 09:05 04/22/25 09:05
04/21/25 04/22/25 04/23/25
06:59 06:59 06:59
Actual Weight 67.857 kg
04/22/25 04:08
04/20/25 22:21
Magnesium 1.7 mg/dl (1.6-2.3) 04/20/25 22:21
04/20/25
12:58
Ehg-R-Jlblctqvocb Pept 879
LAB Results
04/20/25
22:21
Troponin I 0.018
Physical Exam
Constitutional: No acute distress
EENT: Anicteric
Cardiovascular: Rhythm & rate is regular
Respiratory: Rhonchi Present and Other (On O2 by NC)
Neuro/Psych: AO x 3
Data Reviewed
-
Date of Service: April 22, 2025
EKG: Other (tele MAT)
Labs: Labs Reviewed by me
--- NOTE | 2025-04-22 12:29 | W.PN.HOSP.TC ---
Today's Communication/Plan
-
Assessment / Plan
Assessment / Plan
General: No Apparent Distress, Comfortable and Conversant
HEENT: NormoCephalic, Moist mucous membranes, nasal cannula in place
Respiratory: Crackles in the right lung field, no wheezing
Cardiac: S1/S2 and Regular Rhythm; No Rub or Gallop
GI: Soft, Non Tender, Non Distended and Normal Bowel Sounds
Musculoskeletal: No Edema, no deformity
Skin: Warm and dry
: NO Delgado
Neuro: Awake, Alert, Nonfocal/grossly intact
Psych: Calm and Intact Judgment/Insight
Mr. Turner is a 69-year-old male with a medical history of lung cancer (completed chemoradiation 03/24, started immunotherapy 03/30/2025, follows with Dr. Orlando at [facility]), PAD (status post right lower extremity balloon angioplasty
at [facility] 2 years ago, not on Plavix due to rash), and hypertension who presented with chills and shortness of breath. In the ED he was found to be hypoxic which improved with supplemental oxygen and BiPAP. His CT chest demonstrated right lower
lobe pneumonia. Labs were remarkable for leukocytosis of 13,000 and he was tachycardic with a heart rate around 120. He developed a low-grade fever of 100.5 �F. He was admitted for further evaluation and management of sepsis secondary to
pneumonia.
Sepsis secondary to pneumonia:
- Chest imaging suspicious for right lower lobe pneumonia, suspect there are some baseline parenchymal changes due to prior radiation to both lungs for treatment of cancer
- Lactic acid within normal limits
- Has remained normotensive
- Continue antibiotics with cefepime, discontinue vancomycin after negative MRSA screen
- Supplemental oxygen and BiPAP as needed
- Continued scheduled breathing treatments with additional DuoNebs as needed
- Discontinued IV fluids
Tachycardia:
- Likely reactive to acute infection
- Heart rate controlled with diltiazem, discontinued nifedipine
- Cardiology following, monitoring on telemetry for A-fib
- Echocardiogram pending
- Continue treatment of underlying pneumonia
Lung cancer:
- Follows with Dr. Orlando at [facility] in [facility]
- Started on immunotherapy at the beginning of March, missed second dose due to beginning of this current respiratory illness
- I called and left a message for Dr. Orlando with his office today 04/21 to let him know of patient's current hospitalization, left callback information, received callback and discussed current care plan, no new recommendations, oncology team
appreciates our current care and would let us know if they have anything further to add
Hypertension:
- Switched home nifedipine to diltiazem for better rate control considering tachycardia
- Currently normotensive
PAD:
- Continue aspirin and statin
- Not on Plavix due to allergic reaction
DVT prophylaxis: Lovenox
CODE STATUS: Full code
Total time spent on today's encounter was 40 minutes
Anticipated Discharge: 24 - 48 hours
Subjective/Interval History
-
Date of Service: April 22, 2025
Patient was seen and examined at bedside this morning. Feeling well but with some nasal congestion.
Objective Data
-
Labs:
Laboratory Results
04/22/25
04:08
WBC 7.7
Hgb 10.0 L
Hct 29.0 L
Plt Count 156
Vital Signs:
Vital Signs
Temp Pulse Resp BP Pulse Ox
99.4 F 82 25 139/65 92
04/22/25 07:00 04/22/25 10:00 04/22/25 10:00 04/22/25 10:00 04/22/25 10:07
I&O
04/21/25 04/22/25 04/23/25
06:59 06:59 06:59
Intake Total 480 / 480 1920 / 1920 480 / 480
Output Total 730 / 730 200 / 200
Balance 480 / 480 1190 / 1190 280 / 280
Review of Systems
-
History Source: Patient
All other systems: Reviewed and negative
Respiratory: Reports Cough
Physical Exam
-
General: No Apparent Distress
[2025-04-22] MEDS: LOVENOX 40 MG SC (16:51)
--- NOTE | 2025-04-22 18:11 | PTCARENOTE ---
Recd pt this AM. Pt OOB with min assist. comfortably throughout the shift. vital signs stable.
[2025-04-22] MEDS: NEURONTIN 200 MG PO (20:07)
[2025-04-22] MEDS: DUONEB 3 ML INH (20:40)
[2025-04-22 21:30] LABS: Glucose - Point of Care 159 mg/dl (70-99)
[2025-04-22] MEDS: ROBITUSSIN 200 MG PO (22:18)
--- NOTE | 2025-04-22 23:10 | PTCARENOTE ---
received pt from shavon RN. pt aaox3, able to make needs known. Remains on 5LNC, SaO2 94%. Lungs coarse with scattered wheezing throughout, L>R. NSR/ST with PAC/PVC on monitor. VSS. Call avila and belongings within reach. Sputum sample obtained and
sent to lab. PRN Robitussin given for cough. Pt resting comfortably in bed at this time. Care ongoing.
[2025-04-23] VITALS (11 sets, daily range): BP systolic 129–156; BP diastolic 61–78
[2025-04-23] MEDS: MAXIPIME 1000 MG IV ×4 (04:08→21:19)
[2025-04-23] MEDS: STERILE WATER FOR INJECTION 10 ML IV ×4 (04:08→21:20)
[2025-04-23 04:48] LABS: Hemoglobin 10.4 g/dL (13.0-18.0); Mean Corp Hgb Conc. 34.7 g/dL (33.0-37.0); Mean Corpuscular Hgb 31.4 pg (27.0-31.0); Mean Corpuscular Volume 90.6 fL (80.0-94.0); Mean Platelet Volume 9.4 fL (7.4-10.4); Platelet Count 164 10^3/uL (130-400); Red Blood Cell Count 3.31 10^6/uL (4.70-6.10); Red Cell Dist. Width 12.2 % (11.5-14.5); White Blood Cell Count 7.4 10^3/uL (4.8-10.8)
[2025-04-23] MEDS: SYMBICORT 160/4.5 MCG INHALER 2 PUFF INH ×2 (08:01→20:29)
[2025-04-23] MEDS: SPIRIVA RESPIMAT 2.5 MCG 2 PUFF INH (08:01)
[2025-04-23] MEDS: DUONEB 3 ML INH (08:03)
[2025-04-23] MEDS: OCEAN, SALINE MIST 1 SPRAYS NASAL (08:37)
[2025-04-23] MEDS: SENOKOT-S 1 TABLET PO ×2 (08:37→19:21)
[2025-04-23] MEDS: LIPITOR 40 MG PO (08:37)
[2025-04-23] MEDS: ASPIR LOW (ENTERIC COATED) 81 MG PO (08:37)
[2025-04-23] MEDS: CARDIZEM CD 120 MG PO (08:38)
[2025-04-23] MEDS: ROBITUSSIN 200 MG PO ×2 (10:46→21:27)
--- NOTE | 2025-04-23 13:06 | W.PN.HOSP.TC ---
Today's Communication/Plan
-
Assessment / Plan
Assessment / Plan
General: No Apparent Distress, Comfortable and Conversant
HEENT: NormoCephalic, Moist mucous membranes, nasal cannula in place
Respiratory: Crackles in the right lung field, no wheezing
Cardiac: S1/S2 and Regular Rhythm; No Rub or Gallop
GI: Soft, Non Tender, Non Distended and Normal Bowel Sounds
Musculoskeletal: No Edema, no deformity
Skin: Warm and dry
: NO Delgado
Neuro: Awake, Alert, Nonfocal/grossly intact
Psych: Calm and Intact Judgment/Insight
Mr. Turner is a 69-year-old male with a medical history of lung cancer (completed chemoradiation 03/24, started immunotherapy 03/30/2025, follows with Dr. Orlando at [facility]), PAD (status post right lower extremity balloon angioplasty
at [facility] 2 years ago, not on Plavix due to rash), and hypertension who presented with chills and shortness of breath. In the ED he was found to be hypoxic which improved with supplemental oxygen and BiPAP. His CT chest demonstrated right lower
lobe pneumonia. Labs were remarkable for leukocytosis of 13,000 and he was tachycardic with a heart rate around 120. He developed a low-grade fever of 100.5 �F. He was admitted for further evaluation and management of sepsis secondary to
pneumonia.
Sepsis secondary to pneumonia:
- Chest imaging suspicious for right lower lobe pneumonia, suspect there are some baseline parenchymal changes due to prior radiation to both lungs for treatment of cancer
- Lactic acid within normal limits
- Has remained normotensive
- Continue antibiotics with cefepime, discontinue vancomycin after negative MRSA screen
- Supplemental oxygen and BiPAP as needed
- Continued scheduled breathing treatments with additional DuoNebs as needed
- Discontinued IV fluids
Tachycardia:
- Likely reactive to acute infection
- Heart rate controlled with diltiazem, discontinued nifedipine
- Cardiology following, monitoring on telemetry for A-fib
- Echocardiogram pending
- Continue treatment of underlying pneumonia
Lung cancer:
- Follows with Dr. Orlando at [facility] in [facility]
- Started on immunotherapy at the beginning of March, missed second dose due to beginning of this current respiratory illness
- I called and left a message for Dr. Orlando with his office 04/21 to let him know of patient's current hospitalization, left callback information, received callback and discussed current care plan, no new recommendations, oncology team appreciates
our current care and would let us know if they have anything further to add
Hypertension:
- Switched home nifedipine to diltiazem for better rate control considering tachycardia
- Currently normotensive
PAD:
- Continue aspirin and statin
- Not on Plavix due to allergic reaction
DVT prophylaxis: Lovenox
CODE STATUS: Full code
Total time spent on today's encounter was 40 minutes
Anticipated Discharge: 24 - 48 hours
Subjective/Interval History
-
Date of Service: April 23, 2025
Patient was seen and examined at bedside this morning. Family also present. Feeling generally well. Awaiting echocardiogram.
Objective Data
-
Labs:
Laboratory Results
04/23/25
04:23
WBC 7.4
Hgb 10.4 L
Hct 30.0 L
Plt Count 164
Vital Signs:
Vital Signs
Temp Pulse Resp BP Pulse Ox
98.3 F 92 23 132/64 92
04/23/25 11:10 04/23/25 12:00 04/23/25 12:00 04/23/25 12:00 04/23/25 12:00
I&O
04/22/25 04/23/25 04/24/25
06:59 06:59 06:59
Intake Total 1920 / 1920 480 / 480 240 / 240
Output Total 730 / 730 900 / 900 300 / 300
Balance 1190 / 1190 -420 / -420 -60 / -60
Review of Systems
-
History Source: Patient
All other systems: Reviewed and negative
Physical Exam
-
General: No Apparent Distress
[2025-04-23] MEDS: LOVENOX 40 MG SC (17:47)
--- NOTE | 2025-04-23 20:59 | PTCARENOTE ---
Patient aao x3 since start of shift, able to make needs known. Denies pain. NSR on the monitor, no edema noted. Lung sounds diminished throughout with fine crackles noted at b/l bases. Patient continues on 5L o2 via n/c, pox 94%. Call avila within
reach, will continue to monitor patient closely.
[2025-04-23] MEDS: NEURONTIN 200 MG PO (21:19)
[2025-04-24] VITALS (12 sets, daily range): BP systolic 128–160; BP diastolic 62–91
[2025-04-24] MEDS: MAXIPIME 1000 MG IV ×4 (03:50→21:29)
[2025-04-24] MEDS: STERILE WATER FOR INJECTION 10 ML IV ×4 (03:51→21:30)
[2025-04-24 04:09] LABS: Hematocrit 30.4 % (39.0-52.0); Hemoglobin 10.5 g/dL (13.0-18.0); Mean Corp Hgb Conc. 34.5 g/dL (33.0-37.0); Mean Corpuscular Hgb 31.5 pg (27.0-31.0); Mean Corpuscular Volume 91.3 fL (80.0-94.0); Mean Platelet Volume 9.4 fL (7.4-10.4); Platelet Count 186 10^3/uL (130-400); Red Blood Cell Count 3.33 10^6/uL (4.70-6.10); Red Cell Dist. Width 12.1 % (11.5-14.5); White Blood Cell Count 7.9 10^3/uL (4.8-10.8)
[2025-04-24 04:52] LABS: Blood Urea Nitrogen 9 mg/dl (9-20); Calcium 7.7 mg/dl (8.4-10.2); Carbon Dioxide 31 mmol/L (22-30); Chloride 104 mmol/L (98-107); Estimated Creatinine Clearance 110 ml/min; Glucose 119 mg/dl (70-99); Potassium 3.2 mmol/L (3.5-5.1); Sodium 137 mmol/L (135-145); eGFR > 60.00
[2025-04-24] MEDS: ROBITUSSIN 200 MG PO (05:18)
[2025-04-24] MEDS: KCL 40 MEQ PO (05:18)
--- NOTE | 2025-04-24 06:29 | PTCARENOTE ---
Overnight patient removed CPAP and states, 'I dont think its working'. Patient pox and rr stable all night. RN called RT Asad. Asad RT to bedside to assess. RT Asad confirms CPAP working correctly. Patient confused throughout shift. Will continue to
monitor.
[2025-04-24] MEDS: SPIRIVA RESPIMAT 2.5 MCG 2 PUFF INH (08:08)
[2025-04-24] MEDS: DUONEB 3 ML INH (08:08)
[2025-04-24] MEDS: SYMBICORT 160/4.5 MCG INHALER 2 PUFF INH ×2 (08:09→19:47)
[2025-04-24] MEDS: SENOKOT-S 1 TABLET PO ×2 (08:56→19:44)
[2025-04-24] MEDS: ASPIR LOW (ENTERIC COATED) 81 MG PO (08:56)
[2025-04-24] MEDS: CARDIZEM CD 120 MG PO (08:56)
[2025-04-24] MEDS: OCEAN, SALINE MIST 2 SPRAYS NASAL (08:56)
[2025-04-24] MEDS: LIPITOR 40 MG PO (08:56)
--- NOTE | 2025-04-24 09:56 | PTCARENOTE ---
Assumed care of patient this morning. He is aaox3. Pt's SPO2 89-90% on 5L NC. Pt has a moist cough with minimal production of sputum. RT was at the bedside and gave him all his inhaled medications and a PRN DuoNeb. SPO2 currently 93%. at
bedside and updated. New orders for chest PT, acapela and Mucinex. Pt agreeable to get OOB today, pt reports feeling too tired yesterday. Pt denies any pain. Assessment, care and VS as charted.
--- NOTE | 2025-04-24 11:13 | W.PN.HOSP.TC ---
Today's Communication/Plan
-
Continue IV cefepime
Start pulmonary toileting
Follow sputum culture
Telemetry
Assessment / Plan
Assessment / Plan
#Sepsis secondary to CAP
#Acute on chronic hypoxemic respiratory failure
-Presented with shortness of breath, new O2 requirement of up to 5 to 6 L; 2L PRN O2 use at home
-Chest imaging suspicious for RLL PNA, suspect some baseline parenchymal changes due to XRT
-Lactic acid within normal limits, has remained normotensive w/o SUMMER CHILD CAREGIVER; S/P IVF resuscitation
-Initially started on IV cefepime and vancomycin, vancomycin DC'd due to negative MRSA screen
-Initially required BiPAP, has since been weaned off to nasal cannula, on 5 L as of 04/24
-Remains on IV cefepime with RTC bronchodilators; rhonchorous as of this morning
Plan
-Continue with IV cefepime and follow sputum culture
-Start pulmonary toileting with chest PT, Acapella, Mucinex
-Continue with RTC bronchodilator and PRN
-Trend CBC and temperature curve
-Wean oxygen for SpO2 goal > 90%
#Multifocal atrial tachycardia
-Likely secondary to hypoxemia, chronic lung disease as well as infection
-Was started on diltiazem for rate control, nifedipine for BP was DC'd
-No needs for anticoagulation with MAT; no signs of AF/AFL
-Continue with diltiazem and monitor on telemetry for AF/AFL
-Follow-up TTE planned for 04/25
#Lung cancer
-Follows with Dr. Orlando at [facility] in [facility]; s/p chemotherapy and XRT; now on immunotherapy
-Started on immunotherapy at the beginning of March, missed second dose due to beginning of this current respiratory illness
-Previous hospitalist spoke with his primary oncologist, no specific recommendations while hospitalized
#Primary Hypertension
-Home regimen included nifedipine 90 mg daily; no known history of hypertensive systemic disease
-Was transition from nifedipine to diltiazem as above due to MAT
-Blood pressure remains normotensive without first-line antihypertensives
#PAD s/p RLE angioplasty
#HLD
-Home medications include aspirin and statin
-Not currently on Plavix due to documented allergy
-No signs of acute limb ischemia, palpable pulses present
Diet: Regular
DVT prophylaxis: Lovenox
CODE STATUS: Full code
Anticipated Discharge: > 48 hours
Subjective/Interval History
-
Date of Service: April 24, 2025
Seen and examined at the bedside. No acute vents reported overnight. AFVSS on 5 L oxygen with SpO2 low 90s.
Potassium 3.2 this morning. Patient with cough but unable to produce sputum. Has some nasal congestion
Denies any other new complaints this morning. States he is feeling better and breathing well
Objective Data
-
Labs:
Laboratory Results
04/24/25
03:58
WBC 7.9
Hgb 10.5 L
Hct 30.4 L
Plt Count 186
Sodium 137
Potassium 3.2 L
Chloride 104
Carbon Dioxide 31 H
BUN 9
Creatinine 0.5 L
Glucose 119 H
Calcium 7.7 L
Vital Signs:
Vital Signs
Temp Pulse Resp BP Pulse Ox
98.0 F 106 28 147/71 92
04/24/25 08:30 04/24/25 08:56 04/24/25 08:13 04/24/25 08:56 04/24/25 09:29
I&O
04/23/25 04/24/25 04/25/25
06:59 06:59 06:59
Intake Total 480 / 480 240 / 240 240 / 240
Output Total 900 / 900 850 / 850
Balance -420 / -420 -610 / -610 240 / 240
Review of Systems
-
History Source: Patient
All other systems: Reviewed and negative
Physical Exam
-
General: Well Developed, No Apparent Distress and Comfortable
HEENT: Normocephalic, Atraumatic, Moist Mucous Membranes, Anicteric and Oxygen
Respiratory: Rhonchi and Non Labored Respirations; Negative Wheezes, Rales, Crackles or Accessory Resp Muscle Use
Cardiac: S1/S2, Irregular Rhythm and Tachycardic; Negative Murmur, Rub or Gallop
GI: Soft, Nontender, Nondistended and Normal Bowel Sounds
Musculoskeletal: No Clubbing, No Cyanosis and No Edema
Skin: Warm, Dry and Normal Turgor; Negative Rash
Neuro: AO x 3 and Nonfocal/Grossly Intact
Psych: Calm
Data Reviewed
-
Labs: Labs Reviewed by me and Discussed with Patient
[2025-04-24] MEDS: KLOR-CON 40 MEQ PO (11:25)
[2025-04-24] MEDS: MUCINEX 1200 MG PO ×2 (11:25→19:44)
[2025-04-24] MEDS: LOVENOX 40 MG SC (17:04)
[2025-04-24] MEDS: NEURONTIN 200 MG PO (19:44)
[2025-04-25] VITALS (12 sets, daily range): BP systolic 116–139; BP diastolic 48–111; PULSE 87; O2SAT 93
[2025-04-25 04:01] LABS: % Basophils 0.5 % (0-2); % Eosinophils 4.8 % (0-6); % Immature Granulocytes 1.1 % (0-0.5); % Lymphocytes 12.6 % (20.5-51.1); % Monocytes 10.7 % (1.7-9.3); % Neutrophils 70.3 % (42.2-75.2); Absolute Eosinophils 0.4 10^3/uL (0-0.7); Absolute Immature Granulocytes 0.1 10^3/uL (0-0.05); Absolute Monocytes 0.8 10^3/uL (0.1-0.6); Absolute Neutrophils 5.3 10^3/uL (1.4-6.5); Hematocrit 30.6 % (39.0-52.0); Hemoglobin 10.3 g/dL (13.0-18.0); Mean Corp Hgb Conc. 33.7 g/dL (33.0-37.0); Mean Corpuscular Hgb 30.9 pg (27.0-31.0); Mean Corpuscular Volume 91.9 fL (80.0-94.0); Mean Platelet Volume 9.3 fL (7.4-10.4); Nucleated Red Blood Cells % 0 % (-); Platelet Count 193 10^3/uL (130-400); Red Blood Cell Count 3.33 10^6/uL (4.70-6.10); Red Cell Dist. Width 12.2 % (11.5-14.5); White Blood Cell Count 7.5 10^3/uL (4.8-10.8)
[2025-04-25] MEDS: MAXIPIME 1000 MG IV ×4 (04:02→21:18)
[2025-04-25] MEDS: STERILE WATER FOR INJECTION 10 ML IV ×4 (04:03→21:18)
[2025-04-25 04:28] LABS: Blood Urea Nitrogen 12 mg/dl (9-20); Calcium 7.9 mg/dl (8.4-10.2); Carbon Dioxide 30 mmol/L (22-30); Chloride 105 mmol/L (98-107); Estimated Creatinine Clearance 110 ml/min; Glucose 111 mg/dl (70-99); Magnesium 1.9 mg/dl (1.6-2.3); Potassium 3.7 mmol/L (3.5-5.1); Sodium 138 mmol/L (135-145); eGFR > 60.00
--- NOTE | 2025-04-25 04:53 | PTCARENOTE ---
No acute events overnight. Remains on 4 liters. Plan for echo today.
[2025-04-25] MEDS: SPIRIVA RESPIMAT 2.5 MCG 2 PUFF INH (08:17)
[2025-04-25] MEDS: SYMBICORT 160/4.5 MCG INHALER 2 PUFF INH ×2 (08:17→19:46)
[2025-04-25] MEDS: DUONEB 3 ML INH ×2 (08:17→19:53)
[2025-04-25] MEDS: SENOKOT-S 1 TABLET PO ×2 (08:34→19:45)
[2025-04-25] MEDS: LIPITOR 40 MG PO (08:34)
[2025-04-25] MEDS: ASPIR LOW (ENTERIC COATED) 81 MG PO (08:34)
[2025-04-25] MEDS: CARDIZEM CD 120 MG PO (08:35)
[2025-04-25] MEDS: MUCINEX 1200 MG PO ×2 (08:35→19:45)
[2025-04-25] MEDS: OCEAN, SALINE MIST 2 SPRAYS NASAL (08:41)
--- NOTE | 2025-04-25 10:42 | W.PN.HOSP.TC ---
Today's Communication/Plan
-
Continue cefepime
Continue pulmonary toilet
Encourage OOB
Wean O2
Follow-up TTE
Assessment / Plan
Assessment / Plan
#Sepsis secondary to CAP
#Acute on chronic hypoxemic respiratory failure
-Presented with shortness of breath, new O2 requirement of up to 5 to 6 L; 2L PRN O2 use at home
-Chest imaging suspicious for RLL PNA, suspect some baseline parenchymal changes due to XRT
-Lactic acid within normal limits, has remained normotensive w/o PROFESSIONAL HEALTHCARE REPRESENTATIVE; S/P IVF resuscitation
-Initially started on IV cefepime and vancomycin, vancomycin DC'd due to negative MRSA screen
-Initially required BiPAP, has since been weaned off to nasal cannula, on 5 L as of 04/24
-Remains on IV cefepime with RTC bronchodilators; rhonchorous as of this morning
Plan
-Continue with IV cefepime, plan for fluoroquinolone at DC
-Continue with pulmonary toileting with chest PT, Acapella, Mucinex
-Continue with RTC bronchodilator and PRN
-Trend CBC and temperature curve
-Wean oxygen for SpO2 goal > 90%
#Multifocal atrial tachycardia
-Likely secondary to hypoxemia, chronic lung disease as well as infection
-Was started on diltiazem for rate control, nifedipine for BP was DC'd
-No needs for anticoagulation with MAT; no signs of AF/AFL
-Continue with diltiazem and monitor on telemetry for AF/AFL
-Follow-up TTE
#Lung cancer
-Follows with Dr. Orlando at [facility] in [facility]; s/p chemotherapy and XRT; now on immunotherapy
-Started on immunotherapy at the beginning of March, missed second dose due to beginning of this current respiratory illness
-Previous hospitalist spoke with his primary oncologist, no specific recommendations while hospitalized
#Primary Hypertension
-Home regimen included nifedipine 90 mg daily; no known history of hypertensive systemic disease
-Was transition from nifedipine to diltiazem as above due to MAT
-Blood pressure remains normotensive without first-line antihypertensives
#PAD s/p RLE angioplasty
#HLD
-Home medications include aspirin and statin
-Not currently on Plavix due to documented allergy
-No signs of acute limb ischemia, palpable pulses present
Diet: Regular
DVT prophylaxis: Lovenox
CODE STATUS: Full code
Anticipated Discharge: 24 - 48 hours
Subjective/Interval History
-
Date of Service: April 25, 2025
Seen and examined at the bedside. No acute events reported overnight. AFVSS on 4 L O2 with SpO2 94%
Patient states he is coughing with some mucus production as of this morning. States he is feels like he is breathing well
Denies any new complaints today.
Objective Data
-
Labs:
Laboratory Results
04/25/25
03:48
WBC 7.5
Hgb 10.3 L
Hct 30.6 L
Plt Count 193
Sodium 138
Potassium 3.7
Chloride 105
Carbon Dioxide 30
BUN 12
Creatinine 0.5 L
Glucose 111 H
Calcium 7.9 L
Vital Signs:
Vital Signs
Temp Pulse Resp BP Pulse Ox
98.5 F 87 27 139/64 91
04/25/25 07:42 04/25/25 10:00 04/25/25 10:00 04/25/25 10:00 04/25/25 10:00
I&O
04/24/25 04/25/25 04/26/25
06:59 06:59 06:59
Intake Total 240 / 240 720 / 720
Output Total 850 / 850 400 / 400
Balance -610 / -610 320 / 320
Review of Systems
-
History Source: Patient
All other systems: Reviewed and negative
Physical Exam
-
General: Well Developed, No Apparent Distress, Comfortable, Appears Chronically Ill and Other (Thin)
HEENT: Normocephalic, Atraumatic, Moist Mucous Membranes, Anicteric and Oxygen
Respiratory: Rhonchi, Crackles (Right lung base) and Non Labored Respirations; Negative Wheezes or Accessory Resp Muscle Use
Cardiac: Regular Rhythm and S1/S2; Negative Murmur, Rub, Gallop or Tachycardic
GI: Soft, Nontender, Nondistended and Normal Bowel Sounds
Musculoskeletal: No Clubbing, No Cyanosis and No Edema
Skin: Warm and Dry; Negative Rash
Neuro: AO x 3 and Nonfocal/Grossly Intact
Psych: Calm
Data Reviewed
-
Labs: Labs Reviewed by me and Discussed with Patient
--- NOTE | 2025-04-25 11:00 | PTCARENOTE ---
Assumed care of patient this morning. Pt's oxygen weaned to 3L, SPO2 remains stable at 92-94%. Pt still has a moist cough with minimal expectoration. Pt had CHG bath this morning. Pt has no complaints and denies any pain. Assessment, care and VS as
charted.
--- NOTE | 2025-04-25 16:33 | CM ---
CM reviewed chart
ADC 1-2 days
Referral to [facility] pending, watch for increased O2 needs
Discharge Disposition- home with [facility]
[2025-04-25] MEDS: LOVENOX 40 MG SC (17:33)
[2025-04-25] MEDS: NEURONTIN 200 MG PO (19:45)
[2025-04-26] VITALS (8 sets, daily range): BP systolic 118–144; BP diastolic 57–85
[2025-04-26] MEDS: MAXIPIME 1000 MG IV (03:51)
[2025-04-26] MEDS: STERILE WATER FOR INJECTION 10 ML IV (03:51)
[2025-04-26 04:26] LABS: % Basophils 0.5 % (0-2); % Eosinophils 4.4 % (0-6); % Lymphocytes 10.7 % (20.5-51.1); % Monocytes 10.7 % (1.7-9.3); % Neutrophils 72.7 % (42.2-75.2); Absolute Eosinophils 0.3 10^3/uL (0-0.7); Absolute Immature Granulocytes 0.1 10^3/uL (0-0.05); Absolute Lymphocytes 0.8 10^3/uL (1.2-3.4); Absolute Monocytes 0.8 10^3/uL (0.1-0.6); Absolute Neutrophils 5.3 10^3/uL (1.4-6.5); Hematocrit 29.6 % (39.0-52.0); Mean Corp Hgb Conc. 33.8 g/dL (33.0-37.0); Mean Corpuscular Volume 91.6 fL (80.0-94.0); Mean Platelet Volume 9.5 fL (7.4-10.4); Nucleated Red Blood Cells % 0 % (-); Platelet Count 196 10^3/uL (130-400); Red Blood Cell Count 3.23 10^6/uL (4.70-6.10); Red Cell Dist. Width 12.4 % (11.5-14.5); White Blood Cell Count 7.3 10^3/uL (4.8-10.8)
[2025-04-26 04:45] LABS: Blood Urea Nitrogen 13 mg/dl (9-20); Carbon Dioxide 29 mmol/L (22-30); Chloride 107 mmol/L (98-107); Estimated Creatinine Clearance 110 ml/min; Glucose 113 mg/dl (70-99); Potassium 3.9 mmol/L (3.5-5.1); Sodium 139 mmol/L (135-145); eGFR > 60.00
--- NOTE | 2025-04-26 06:07 | PTCARENOTE ---
No acute vents overnight. Remain on 3 liters NC.
[2025-04-26] MEDS: CARDIZEM CD 120 MG PO (07:45)
[2025-04-26] MEDS: MUCINEX 1200 MG PO (07:45)
[2025-04-26] MEDS: ASPIR LOW (ENTERIC COATED) 81 MG PO (07:45)
[2025-04-26] MEDS: LIPITOR 40 MG PO (07:45)
[2025-04-26] MEDS: SENOKOT-S 1 TABLET PO (07:45)
[2025-04-26] MEDS: SYMBICORT 160/4.5 MCG INHALER 2 PUFF INH (07:58)
[2025-04-26] MEDS: SPIRIVA RESPIMAT 2.5 MCG 2 PUFF INH (07:58)
--- NOTE | 2025-04-26 08:14 | W.PN.HOSP.TC ---
Addendum entered and electronically signed by Yamil Braden DO 04/26/25 11:18:
Addendum: Patient on 3 L O2 comfortably, baseline of 2 L. Lungs clear on exam this morning, was rhonchorous previously. Chest x-ray yesterday did show some mild worsening though he is clinically improving. Low suspicion for immunotherapy induced
pneumonitis or other process. Leukocytosis has resolved and patient improving daily. Will have nurse ambulate patient, consider discharge if respiratory status stable
Original Note:
Today's Communication/Plan
-
Transition to Levaquin
Wean oxygen as able
Likely discharge later
Assessment / Plan
Assessment / Plan
#Sepsis secondary to CAP
#Acute on chronic hypoxemic respiratory failure
-Presented with shortness of breath, new O2 requirement of up to 5 to 6 L; 2L PRN O2 use at home
-Chest imaging suspicious for RLL PNA, suspect some baseline parenchymal changes due to XRT
-Lactic acid within normal limits, has remained normotensive w/o ORCHARD PRUNER; S/P IVF resuscitation
-Initially started on IV cefepime and vancomycin, vancomycin DC'd due to negative MRSA screen
-Initially required BiPAP, has since been weaned off to nasal cannula, on 5 L as of 04/24
-Remains on IV cefepime with RTC bronchodilators; rhonchorous as of this morning
Plan
-Transition IV cefepime to Levaquin 750 mg QD to complete 10 days
-Continue with pulmonary toileting with chest PT, Acapella, Mucinex
-Continue with RTC bronchodilator and PRN
-Trend CBC and temperature curve
-Wean oxygen for SpO2 goal > 90%
#Multifocal atrial tachycardia
-Likely secondary to hypoxemia, chronic lung disease as well as infection
-Was started on diltiazem for rate control, nifedipine for BP was DC'd
-No needs for anticoagulation with MAT; no signs of AF/AFL
-Continue with diltiazem and monitor on telemetry for AF/AFL
-TTE was fairly unremarkable, showed mild LVH
-Heart rate WNL for last 48 hours
#Lung cancer
-Follows with Dr. Orlando at [facility] in [facility]; s/p chemotherapy and XRT; now on immunotherapy
-Started on immunotherapy at the beginning of March, missed second dose due to beginning of this current respiratory illness
-Previous hospitalist spoke with his primary oncologist, no specific recommendations while hospitalized
#Primary Hypertension
-Home regimen included nifedipine 90 mg daily; no known history of hypertensive systemic disease
-Was transition from nifedipine to diltiazem as above due to MAT
-Blood pressure remains normotensive without first-line antihypertensives
#PAD s/p RLE angioplasty
#HLD
-Home medications include aspirin and statin
-Not currently on Plavix due to documented allergy
-No signs of acute limb ischemia, palpable pulses present
Diet: Regular
DVT prophylaxis: Lovenox
CODE STATUS: Full code
Anticipated Discharge: Within 24 hours
Subjective/Interval History
-
Date of Service: April 26, 2025
Seen and examined at the bedside. No acute events reported overnight. AFVSS on 3 L O2 with SpO2 94 to 95% while in the room
Patient states he feels that he is breathing better each day. Still with a productive cough, bringing up sputum
Denies any new complaints today. Denies shortness of breath with exertion/ambulation
Objective Data
-
Labs:
Laboratory Results
04/26/25
03:57
WBC 7.3
Hgb 10.0 L
Hct 29.6 L
Plt Count 196
Sodium 139
Potassium 3.9
Chloride 107
Carbon Dioxide 29
BUN 13
Creatinine 0.5 L
Glucose 113 H
Calcium 8.0 L
Vital Signs:
Vital Signs
Temp Pulse Resp BP Pulse Ox
98.3 F 88 15 131/57 95
04/26/25 03:12 04/26/25 08:02 04/26/25 08:02 04/26/25 07:45 04/26/25 08:02
I&O
04/25/25 04/26/25 04/27/25
06:59 06:59 06:59
Intake Total 720 / 720
Output Total 400 / 400 550 / 550
Balance 320 / 320 -550 / -550
Review of Systems
-
History Source: Patient
All other systems: Reviewed and negative
Physical Exam
-
General: Well Developed, No Apparent Distress and Comfortable
HEENT: Normocephalic, Atraumatic, Moist Mucous Membranes and Anicteric
Respiratory: Clear to Auscultation and Non Labored Respirations; Negative Accessory Resp Muscle Use
Cardiac: S1/S2 and Irregular Rhythm; Negative Murmur, Rub or Gallop
GI: Soft, Nontender, Nondistended and Normal Bowel Sounds
Musculoskeletal: No Clubbing, No Cyanosis and No Edema
Skin: Warm, Dry and Normal Turgor; Negative Rash
Neuro: AO x 3 and Nonfocal/Grossly Intact; Negative Tremors
Psych: Calm
Data Reviewed
-
Labs: Labs Reviewed by me and Discussed with Patient
[2025-04-26] MEDS: MAXIPIME IV (11:21)
[2025-04-26] MEDS: STERILE WATER FOR INJECTION IV ×2 (11:21→15:57)
[2025-04-26] MEDS: LEVAQUIN 750 MG PO (13:00)
--- NOTE | 2025-04-26 16:05 | DOWNTIME ---
There was a [employer] Specialist Downtime on 04/26/2025 from 1230 to 04/26/2025 at 1550. Downtime documentation of patient's care, including medication administrations, has been reconciled in the electronic record per guidelines. Refer to the
patient's paper chart under the miscellaneous tab to see printed paper medication records and downtime forms.
--- NOTE | 2025-04-26 16:56 | PTCARENOTE ---
Respiratory therapist did home O2 assessment; informed this RN that patient is ok with 2L oxygen. Patient stated he has oxygen at home. TT sent to Dr Braden who entered order to discharge and to de-access port. TT sent to VAT IBIS Funez; await response.
--- NOTE | 2025-04-26 17:28 | CM ---
Patient with Hx lung CA with Port with Dx Sepsis secondary to pneumonia. O2 3L. PT recommends HH.
Met with patient and Soni; both agree to d/c home today with [facility]. IMM completed. will drive patient home.
Plan home today with [facility].
--- NOTE | 2025-04-26 17:40 | W.DCSUMMARY ---
Discharge Summary
Discharge Data
Date of Admission: 04/20/25
Date of Discharge: 04/26/25
Total time spent discharging patient (in min): 33
-
Pending Results: No
Hospital Course
Discharging Physician :�Yamil Braden DO
Disposition :���� Home
Principal Discharge diagnosis :�
Acute on chronic hypoxemic respiratory failure
Sepsis secondary to CAP
Multifocal atrial tachycardia
Chronic Discharge diagnosis :�
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
Stage IV lung cancer
S/p chemo + XRT
Chronic hypoxemic respiratory failure (2 L O2)
PAD s/p RLE angioplasty
HTN with LVH
Dyslipidemia
Plavix allergy
Hospital Course :�
69-year-old male that presented to the hospital on 04/20 with a complaint of shortness of breath. Dyspnea was accompanied by fevers and chills over 4 days. Found to have leukocytosis on arrival. Initial CTA negative for pulmonary embolism though
did show right lower lobe consolidation concerning for pneumonia. Required 5 L of supplemental oxygen up from baseline of 2 L O2. Briefly required BiPAP upon arrival that was quickly weaned to nasal cannula. Was started on broad-spectrum's with
IV cefepime and IV vancomycin. MRSA screen negative and vancomycin was discontinued. Continued on IV cefepime with resolution of leukocytosis and improved oxygen status. Did plateau with near 4 L O2 requirement. Started on pulmonary toileting
with Acapella device, Mucinex, DuoNebs with improvement. Repeat chest x-ray showed interval worsening of pneumonia though patient clinically improved and had no further leukocytosis or fevers. On the following day he was titrated down to 2 L of
supplemental oxygen on oxygen evaluation with respiratory therapy. Transitioned IV cefepime to Levaquin to complete 10 days of antibiotics. Recommended that he follow-up with his bale breaker operator and PCP within 1 to 2 weeks of discharge from the
hospital. Was started on diltiazem 120 mg daily for rate control of MAT, no anticoagulants indicated.
Consultants :
Shower Maid: Marco Morgan MD
Important imaging findings :�
CTA thorax PE protocol (04/20/2025)
IMPRESSION:
1. No evidence of pulmonary embolism.
2. Patchy right lower lobe subpleural consolidation highly suspicious for pneumonia.
3. Bilateral pulmonary nodules measuring up to 1.1 cm, infectious/inflammatory versus neoplastic. Recommend short-term follow-up CT chest in 6-10 weeks versus further evaluation with PET/CT.
4. Prominent mediastinal and hilar lymphadenopathy, reactive versus metastatic.
Transthoracic echocardiogram (04/25/2025)
CONCLUSIONS
Normal biventricular size and systolic function without regional wall motion abnormality.
Mild concentric left ventricular hypertrophy.
No significant valvular disease.
Compared to previous echo report from 11/17/22, the right ventricle no longer appears enlarged.
Procedure findings :� N/A
Follow-up :
Follow-up with PCP in 1 to 2 weeks from discharge
Follow-up with primary bale breaker operator within 2 to 3 weeks of discharge
Discharge Plan
-
Patient Disposition: Home (Routine Discharge)
Discharge Diagnosis/Procedures: Acute on chronic hypoxemic respiratory failure
Sepsis secondary to community-acquired pneumonia
Multifocal atrial tachycardia
Lung cancer on immunotherapy
Condition: Fair
Diet: Low Cholesterol
Activity: As tolerated
Driving Restrictions: No driving for 24 hours
Bathing Restrictions: None
Blood Work: None
Others Tests: PFTs and 6 MWT with bale breaker operator
Activity Restrictions/Additional Instructions:
After discharge from hospital schedule follow-up appointment with family doctor. Should be seen in office within 1 to 2 weeks of discharge from the hospital
Follow-up with your bale breaker operator within 2 to 3 weeks of discharge from the hospital
Schedule follow-up appointment with industrial sales representative, referral provided below
Instructions: Community-acquired pneumonia in adults
Referrals:
Naldo Alfonso MD [Family Provider, Internal Medicine]
Additional Discharge Medication Instructions: Start diltiazem 120 mg daily
Start levofloxacin 750 mg daily for 4 more days after discharge (last day 04/30/2025)
Continue Mucinex every 12 hours for 4 more days after discharge
Stop taking nifedipine
Prescriptions:
New
diltiazem HCl 120 mg Capsule,Extended Release 24hr
120 mg PO DAILY 30 Days Qty: 30 0RF
guaifenesin 600 mg Tablet Extended Release 12hr
1,200 mg PO Q12 4 Days Qty: 16 0RF
levofloxacin 750 mg Tablet
750 mg PO DAILY 4 Days Qty: 4 0RF
Continued
gabapentin 100 mg Capsule
200 mg PO HS
atorvastatin [Lipitor] 40 mg Tablet
40 mg PO DAILY
aspirin 81 mg Tablet,Delayed Release (Dr/Ec)
81 mg PO DAILY
albuterol sulfate 90 mcg/actuation Hfa Aerosol Inhaler
2 puff INHALATION R Q6HPRN PRN (Reason: sob)
Trelegy Ellipta 200-62.5-25 mcg Blister With Device
1 inh INHALATION R DAILY
Discontinued
nifedipine [Nifediac CC] 90 mg Tablet Extended Release
90 mg PO DAILY
Discharge Orders:
Discharge Patient (As Directed); Ordered 04/26/25
Ordered By: Yamil Braden
Discharge Date and Time
Print Language: K[place]IL[place]
--- NOTE | 2025-04-26 18:27 | PTCARENOTE ---
Patient for discharge. On d/c instructions it stated for patient to see contract analyst, referral below; however, no contract analyst name given. Patient and confirm that patient has an appt with his contract analyst 05/05/25. This nurse contacted Dr Braden
via TT who responded that patient may see his contract analyst. Both patient and state that they have home oxygen ( also brought portable for ride home) and they are able to brick picker new prescriptions on the way home.
== END 2025-04-26 18:35 | disposition home health service (06) | DRG 871 ==
LOC: IMU 16:41
PROVIDERS: Internal Medicine; Nurse Practitioner; Nurse Practitioner Gerontology; Registered Nurse; ADMITTING PHYSICIAN Internal Medicine; ATTENDING PHYSICIAN Internal Medicine; EMERGENCY PHYSICIAN Student in an Organized Health Care Education/Training Program; FAMILY PHYSICIAN Internal Medicine; OTHER PHYSICIAN Internal Medicine Cardiovascular Disease
PROC: 5A09357 Assistance with Respiratory Ventilation, Less than 24 Consecutive Hours, Continuous Positive Airway Pressure (ICD-10-PCS; 2025-04-20)
DX: A41.9 Sepsis, unspecified organism (principal); J96.21 Acute and chronic respiratory failure with hypoxia; J44.0 Chronic obstructive pulmonary disease with (acute) lower respiratory infection; C34.90 Malignant neoplasm of unspecified part of unspecified bronchus or lung; I47.19 Other supraventricular tachycardia; E78.5 Hyperlipidemia, unspecified; Z88.8 Allergy status to other drugs, medicaments and biological substances; I11.9 Hypertensive heart disease without heart failure; Z99.81 Dependence on supplemental oxygen; F17.200 Nicotine dependence, unspecified, uncomplicated; Z79.82 Long term (current) use of aspirin; Z79.899 Other long term (current) drug therapy; Z92.3 Personal history of irradiation; Z11.52 Encounter for screening for COVID-19
CPT/HCPCS: 71045; 71275; 80048; 80053; 82805; 82962; 83605; 83735; 83880; 84484; 85025; 85027; 86803; 87040; 87070; 87205; 87449; 87502; 87641; 87811; 87899; 93005; 93306; 94640; 94660; 94667; 94668; 96361; 96365; 96367; 97116; 97163; 99291; Q9967

== ENCOUNTER → 2025-05-12 09:25 | Outpatient (REF) | payer MEDICARE, OTHER, SELFPAY | LOC: RAD 09:25 | DX: Z51.12 Encounter for antineoplastic immunotherapy (principal); C34.12 Malignant neoplasm of upper lobe, left bronchus or lung; C34.11 Malignant neoplasm of upper lobe, right bronchus or lung; J43.8 Other emphysema | CPT/HCPCS: 71046 ==